=== PATIENT | male | born 1960 | race Caucasian/White ===

== ENCOUNTER 2023-12-22 12:30 | Emergency (ER) | payer MEDICARE, BC ==
[~2023-12-22] VITALS: Ht 180.3 cm; Wt 90.7 kg
[2023-12-22] MEDS ORDERED: ATOR20TA PO (13:08)
[2023-12-22] MEDS ORDERED: RABIES VACCINE (PCEC)/PF 2.5 UNIT ML IM ONE (13:21)
[2023-12-22 13:28] VITALS: BP 161/89; O2SAT 97
[2023-12-22] MEDS: RABIES VACCINE (PCEC)/PF 2.5 UNIT ML IM ONE (13:31)
== END 2023-12-22 13:37 | disposition home or self-care (01) ==
LOC: ER 12:31
DX: Z23 Encounter for immunization (principal); Z79.899 Other long term (current) drug therapy; Z88.1 Allergy status to other antibiotic agents
CPT/HCPCS: A4606; A4663

== ENCOUNTER 2024-01-05 13:08 | Emergency (ER) | payer MEDICARE, BC ==
[~2024-01-05] VITALS: Ht 180.3 cm; Wt 90.7 kg
[~2024-01-05 13:08] MED LIST: ATOR20TA PO
[2024-01-05 13:32] VITALS: O2SAT 97
[2024-01-05] MEDS ORDERED: RABIES VACCINE (PCEC)/PF 2.5 UNIT ML IM ONE (14:55)
[2024-01-05] MEDS: RABIES VACCINE (PCEC)/PF 2.5 UNIT ML IM ONE (15:07)
== END 2024-01-05 15:29 | disposition home or self-care (01) ==
LOC: ER 13:10
DX: Z23 Encounter for immunization (principal); Z79.899 Other long term (current) drug therapy; Z60.2 Problems related to living alone; Z88.1 Allergy status to other antibiotic agents
CPT/HCPCS: A4606; A4663

== ENCOUNTER 2025-05-15 20:00 | Emergency (ER) | payer MEDICARE, BC ==
[~2025-05-15] VITALS: Ht 177.8 cm; Wt 90.7 kg
[2025-05-15 20:06] VITALS: BP 134/79
[2025-05-15 21:29] VITALS: BP 134/79; O2SAT 96
== END 2025-05-15 21:19 | disposition home or self-care (01) ==
LOC: ER 20:13
DX: S01.111A Laceration without foreign body of right eyelid and periocular area, initial encounter (principal); Z79.899 Other long term (current) drug therapy; Z91.018 Allergy to other foods; W22.8XXA Striking against or struck by other objects, initial encounter; Y93.89 Activity, other specified; Y92.89 Other specified places as the place of occurrence of the external cause; Y99.8 Other external cause status
CPT/HCPCS: A4606; A4663

== ENCOUNTER 2025-08-23 15:50 | Emergency (ER) | payer MEDICARE, BC ==
[~2025-08-23] VITALS: Ht 177.8 cm; Wt 90.7 kg
[2025-08-23 15:50] VITALS: BP 149/91
[2025-08-23 16:45] LABS: CREATININE 0.7 mg/dL (0.6-1.3); SODIUM SERUM 139 mmol/L (136-145); UREA NITROGEN, BLOOD 17 mg/dL (7-18)
[2025-08-23 16:51] LABS: ASPARTATE AMINOTRANSFERASE 32 U/L (15-37); TOTAL PROTEIN, SERUM 8.0 g/dL (6.4-8.2)
[2025-08-23 17:39] LABS: PLATELET COUNT (AUTO) 259 K/uL (152-348); RED BLOOD CELL COUNT(AUTO) 5.05 MIL/uL (4.06-5.63); RED CELL DISTRIBUTION WIDTH 13.1 % (12.1-16.2); WHITE BLOOD COUNT (AUTO) 7.8 K/uL (3.6-10.2)
[2025-08-23] MEDS ORDERED: PRED50TA PO (17:53)
[2025-08-23] MEDS ORDERED: ALBU2SYR27 PO (17:53)
[2025-08-23 18:00] VITALS: BP 135/89; TEMP 97.6; O2SAT 97
[2025-08-31] MEDS ORDERED: FLUT100B3 IH (16:35)
== END 2025-08-23 18:01 | disposition home or self-care (01) ==
LOC: ER 15:53
DX: J45.909 Unspecified asthma, uncomplicated (principal); I51.9 Heart disease, unspecified; E78.00 Pure hypercholesterolemia, unspecified; R06.02 Shortness of breath; Z79.52 Long term (current) use of systemic steroids; Z79.899 Other long term (current) drug therapy; Z20.822 Contact with and (suspected) exposure to COVID-19
CPT/HCPCS: 36415; 71045; 84484; 85025; 85730; A4606; A4663

== ENCOUNTER 2025-08-29 18:15 | Emergency (ER) | payer MEDICARE, BC ==
[~2025-08-29] VITALS: Ht 177.8 cm; Wt 90.7 kg
[~2025-08-29 18:15] MED LIST changes: +ALBU2SYR27 PO; +PRED50TA PO
[2025-08-29 18:27] VITALS: BP 122/81
[2025-08-29] MEDS ORDERED: BUDE90AE3 IH (20:13)
[2025-08-29] MEDS ORDERED: METH4TAB3 PO (20:16)
[2025-08-29 20:31] VITALS: BP 122/81; O2SAT 96
[2025-08-31] MEDS ORDERED: FLUT100B3 IH (16:35)
== END 2025-08-29 20:33 | disposition home or self-care (01) ==
LOC: ER 18:28
DX: J98.01 Acute bronchospasm (principal); R05.9 Cough, unspecified; I51.9 Heart disease, unspecified; E78.00 Pure hypercholesterolemia, unspecified; Z79.51 Long term (current) use of inhaled steroids; Z79.52 Long term (current) use of systemic steroids; Z79.899 Other long term (current) drug therapy
CPT/HCPCS: A4606; A4663